=== PATIENT | male | born 1995 | race Caucasian/White ===

== ENCOUNTER 2017-12-12 07:59 | Emergency (ER) | payer BC ==
[2017-12-12] MEDS ORDERED: ONDANSETRON DISINTEGRATING 4 MG TAB PO ONE (08:19)
--- NOTE | 2017-12-12 08:50 | EDPHY ---
H & P Time Seen by Provider: 12/12/17 08:48 HPI/ROS: CHIEF COMPLAINT: Nausea and vomiting since yesterday evening HISTORY OF PRESENT ILLNESS: Patient is a 22-year-old male with a history of type 1 diabetes here with chief complaint of nausea and vomiting starting yesterday evening. He denies any diarrhea or fever. There has been no blood in the emesis. He has no sick contacts. States yesterday evening he was hanging out with friends and had 1 beer at home which is quite normal for him and then day rather bites down to a brewery. At that time he started feeling nauseous and attempted to have a 2nd beer but was unable to finish due to nausea. Having 1-2 beers in the evening is not atypical for him but he does not demonstrate has no history of alcoholism. Yesterday evening he reports emesis times 10 and checked his blood sugars in the evening which ranged between 60 and 80. He is able to tolerate p.o. including honey to keep his blood sugar elevated. He has no history of diabetic ketoacidosis or surgery to his abdomen. Recently moved here from the [facility] and has not established with an physician practice administrator yet. REVIEW OF SYSTEMS: Constitutional: No fever, no chills. Eyes: No discharge. ENT: No sore throat. Cardiovascular: No chest pain, no palpitations. Respiratory: No cough, no shortness of breath. Gastrointestinal: + abdominal pain, + vomiting. Genitourinary: No hematuria. Musculoskeletal: No back pain. Skin: No rashes. Neurological: No headache. Smoking Status: Current every day smoker Physical Exam: General Appearance: Alert and no distress. Eyes: Pupils equal and round no injection. Respiratory: Chest is nontender, lungs are clear to auscultation. Cardiac: regular rate and rhythm. Gastrointestinal: Abdomen is soft and mild tenderness to left lower quadrant, no right lower quadrant or right upper quadrant tenderness, no masses, bowel sounds normal. Musculoskeletal: Neck is supple and nontender. Extremities have full range of motion and are nontender. Skin: No rashes or lesions. Constitutional: Initial Vital Signs Temperature (C) 36.4 C 12/12/17 08:10 Heart Rate 88 12/12/17 08:10 Respiratory Rate 19 12/12/17 08:10 Blood Pressure 110/68 12/12/17 08:10 O2 Sat (%) 95 12/12/17 08:10 O2 Delivery Mode Room Air Allergies/Adverse Reactions: No Known Allergies Allergy (Unverified 12/12/17 08:10) Home Medications: Medication Instructions Recorded Ondansetron [Zofran Odt] 4 mg PO Q8HRS #16 tab.rapdis 12/12/17 novoLOG 12/12/17 Medical Decision Making ED Course/Re-evaluation: 22-year-old type 1 diabetic male here with nausea and vomiting for less than 24 hr. He does have an elevated blood sugar and elevated anion gap with decreased CO2 on his metabolic panel. He is given IV normal saline and Zofran and feels significantly improved. Repeat basic metabolic panel showed greatly improved CO2 and anion gap. Patient is tolerating p.o. With like to continue oral rehydration at home and agrees to closely monitor his blood sugars. He was given Zofran to control his nausea. There has been no emesis during his stay in the emergency room. He has a primary care physician that he can follow up with closely. Differential Diagnosis: DKA, hyperglycemia, sepsis, pneumonia, UTI, appendicitis - Data Points Laboratory Results: Laboratory Results 12/12/17 09:06 12/12/17 11:17 12/12/17 12/12/17 12/12/17 11:17 10:14 09:38 WBC RBC Hgb Hct MCV MCH MCHC RDW Plt Count MPV Neut % (Auto) Lymph % (Auto) [place] % (Auto) Eos % (Auto) Baso % (Auto) Nucleat RBC Rel Count Absolute Neuts (auto) Absolute Lymphs (auto) Absolute Monos (auto) Absolute Eos (auto) Absolute Basos (auto) Absolute Nucleated RBC Immature Gran % Seg Neutrophils % Band Neutrophils % Lymphocytes % Monocytes % Eosinophils % Basophils % Metamyelocytes % Myelocytes % Promyelocytes % Blast Cells % Immature Gran # Absolute Seg Neuts Absolute Band Neuts Absolute Lymphocytes Absolute Monocytes Absolute Eosinophils Absolute Basophils Absolute Metamyelocyte Absolute Myelocytes Absolute Promyelocytes Absolute Plasma Cells Absolute Blast Cells Plasma Cells % Toxic Granulation Platelet Estimate Sodium 140 mEq/L mEq/L (135-145) Potassium 3.9 mEq/L mEq/L (3.3-5.0) Chloride 103 mEq/L mEq/L (97-110) Carbon Dioxide 19 mEq/l L mEq/l (22-31) Anion Gap 18 mEq/L H mEq/L (8-16) BUN 18 mg/dL mg/dL (7-23) Creatinine 0.7 mg/dL mg/dL (0.7-1.3) Estimated GFR > 60 Glucose 188 mg/dL H mg/dL (70-100) POC Glucose 246 mg/dL H mg/dL (70-100) Calcium 8.1 mg/dL L mg/dL (8.5-10.4) Total Bilirubin Conjugated Bilirubin Unconjugated Bilirubin AST ALT Alkaline Phosphatase Total Protein Albumin Lipase Beta-Hydroxybutyrate Urine Color YELLOW Urine Appearance CLEAR Urine pH 5.0 (5.0-7.5) Ur Specific [place] 1.021 (1.002-1.030) Urine Protein NEGATIVE (NEGATIVE) Urine Ketones 2+ H (NEGATIVE) Urine Blood NEGATIVE (NEGATIVE) Urine Nitrate NEGATIVE (NEGATIVE) Urine Bilirubin NEGATIVE (NEGATIVE) Urine Urobilinogen NEGATIVE EU EU (0.2-1.0) Ur Leukocyte Esterase NEGATIVE (NEGATIVE) Urine RBC 1-3 /hpf /hpf (0-3) Urine WBC 1-3 /hpf /hpf (0-3) Ur Epithelial Cells NONE SEEN /lpf /lpf (NONE-1+) Urine Mucus TRACE /lpf /lpf (NONE-1+) Urine Glucose 3+ H (NEGATIVE) Serum Ketones 12/12/17 12/12/17 12/12/17 09:06 09:06 09:06 WBC 8.86 10^3/uL 10^3/uL (3.80-9.50) RBC 5.88 10^6/uL 10^6/uL (4.40-6.38) Hgb 18.2 g/dL H g/dL (13.7-17.5) Hct 51.4 % H % (40.0-51.0) MCV 87.4 fL fL (81.5-99.8) MCH 31.0 pg pg (27.9-34.1) MCHC 35.4 g/dL g/dL (32.4-36.7) RDW 12.6 % % (11.5-15.2) Plt Count 201 10^3/uL 10^3/uL (150-400) MPV 11.6 fL fL (8.7-11.7) Neut % (Auto) Not Reported Lymph % (Auto) Not Reported [place] % (Auto) Not Reported Eos % (Auto) Not Reported Baso % (Auto) Not Reported Nucleat RBC Rel Count Not Reported Absolute Neuts (auto) Not Reported Absolute Lymphs (auto) Not Reported Absolute Monos (auto) Not Reported Absolute Eos (auto) Not Reported Absolute Basos (auto) Not Reported Absolute Nucleated RBC Not Reported Immature Gran % Not Reported Seg Neutrophils % 40.4 % % Band Neutrophils % 46.5 % % Lymphocytes % 6.0 % % Monocytes % 7.1 % % Eosinophils % 0 % % Basophils % 0 % % Metamyelocytes % 0 % % Myelocytes % 0 % % Promyelocytes % 0 % % Blast Cells % 0 % % Immature Gran # Not Reported Absolute Seg Neuts 3.58 10^/uL 10^/uL (1.70-6.50) Absolute Band Neuts 4.12 10^3/uL H 10^3/uL (0.00-0.70) Absolute Lymphocytes 0.53 10^3/uL L 10^3/uL (1.00-3.00) Absolute Monocytes 0.63 10^3/uL 10^3/uL (0.30-0.80) Absolute Eosinophils 0.00 10^3/uL L 10^3/uL (0.03-0.40) Absolute Basophils 0.00 10^3/uL L 10^3/uL (0.02-0.10) Absolute Metamyelocyte 0.00 10^3/mL 10^3/mL (0.00-0.00) Absolute Myelocytes 0.00 10^3/mL 10^3/mL (0.00-0.00) Absolute Promyelocytes 0.00 10^3/uL 10^3/uL (0.00-0.00) Absolute Plasma Cells 0.00 10^3/uL 10^3/uL (0.00-0.00) Absolute Blast Cells 0.00 10^3/uL 10^3/uL (0.00-0.00) Plasma Cells % 0 % % Toxic Granulation PRESENT H Platelet Estimate ADEQUATE (ADEQ) Sodium 139 mEq/L mEq/L (135-145) Potassium 4.8 mEq/L mEq/L (3.3-5.0) Chloride 98 mEq/L mEq/L (97-110) Carbon Dioxide 16 mEq/l L mEq/l (22-31) Anion Gap 25 mEq/L H mEq/L (8-16) BUN 19 mg/dL mg/dL (7-23) Creatinine 0.8 mg/dL mg/dL (0.7-1.3) Estimated GFR > 60 Glucose 277 mg/dL H mg/dL (70-100) POC Glucose Calcium 8.9 mg/dL mg/dL (8.5-10.4) Total Bilirubin 2.2 mg/dL H mg/dL (0.1-1.4) Conjugated Bilirubin 0.6 mg/dL H mg/dL (0.0-0.5) Unconjugated Bilirubin 1.6 mg/dL H mg/dL (0.0-1.1) AST 24 IU/L IU/L (17-59) ALT 36 IU/L IU/L (21-72) Alkaline Phosphatase 63 IU/L IU/L (38-126) Total Protein 7.6 g/dL g/dL (6.3-8.2) Albumin 4.8 g/dL g/dL (3.5-5.0) Lipase 15 IU/L L IU/L (23-300) Beta-Hydroxybutyrate 7.51 mmol/L H mmol/L (0.02-0.27) Urine Color Urine Appearance Urine pH Ur Specific [place] Urine Protein Urine Ketones Urine Blood Urine Nitrate Urine Bilirubin Urine Urobilinogen Ur Leukocyte Esterase Urine RBC Urine WBC Ur Epithelial Cells Urine Mucus Urine Glucose Serum Ketones Cancelled Medications Given: Discontinued Medications Sodium Chloride (Ns) 1,000 mls @ 0 mls/hr IV EDNOW ONE; Wide Open PRN Reason: Protocol Stop: 12/12/17 09:01 Last Admin: 12/12/17 09:10 Dose: 1,000 mls Sodium Chloride (Ns) 1,000 mls @ 0 mls/hr IV EDNOW ONE; Wide Open PRN Reason: Protocol Stop: 12/12/17 10:03 Last Admin: 12/12/17 10:15 Dose: 1,000 mls Ondansetron HCl (Zofran Odt) 4 mg PO EDNOW ONE Stop: 12/12/17 08:20 Last Admin: 12/12/17 08:21 Dose: 4 mg Point of Care Test Results: Chemistry 12/12/17 10:14 POC Glucose 246 mg/dL H mg/dL (70-100) Departure - Departure Disposition: Home, Routine, Self-Care Clinical Impression: Nausea and vomiting, Hyperglycemia due to type 1 diabetes mellitus Condition: Good Instructions: Gastroenteritis (ED) Additional Instructions: Please follow up with the primary care physician in 2-3 days to have you're labs rechecked. Continue to monitor your blood sugar closely. If you are unable to keep food down or fluids down return to the ER for further management. Take Zofran as needed for nausea. Referrals: NONE *PRIMARY CARE P,. [Primary Care Provider] - As per Instructions Prescriptions: Ondansetron [Zofran Odt] 4 mg PO Q8HRS #16 [email or web address]
[2017-12-12] MEDS ORDERED: NS 1,000 ML IV ONE ×2 (09:00→10:02)
[2017-12-12 09:19] LABS: PLATELET COUNT 201 10^3/uL (150-400)
[2017-12-12 12:41] VITALS: BP 125/77
== END 2017-12-12 12:45 | disposition home or self-care (01) ==
DX: E11.65 Type 2 diabetes mellitus with hyperglycemia (principal); F17.200 Nicotine dependence, unspecified, uncomplicated; E86.9 Volume depletion, unspecified; Z79.4 Long term (current) use of insulin